=== PATIENT | male | born 1955 | race Caucasian/White ===

== ENCOUNTER 2021-04-23 14:20 | Emergency (ER) | payer MEDICARE ==
[~2021-04-23] VITALS: Ht 193 cm; Wt 172.4 kg
[2021-04-23] MEDS ORDERED: KETOROLAC 15MG/ML VIAL (15MG/ML) IM ONE (16:30)
[2021-04-23] MEDS ORDERED: HYDROCODONE/ACETAMINOPHEN 10/325 MG TAB PO ONE (16:30)
[2021-04-23] MEDS ORDERED: ACET1TAB25 PO (17:36)
[2021-04-23] MEDS ORDERED: IBUP-2070 PO (17:36)
[2021-04-23 17:37] VITALS: BP 123/55
== END 2021-04-23 17:55 | disposition home or self-care (01) ==
LOC: EDH 14:20
DX: M17.11 Unilateral primary osteoarthritis, right knee (principal); Z90.49 Acquired absence of other specified parts of digestive tract
CPT/HCPCS: 73562; 96372; 99283; J1885